=== PATIENT | male | born 1960 ===

== ENCOUNTER 2024-03-11 01:19 | Inpatient (IN) | payer BC ==
[2024-03-11 01:54] LABS: #Basophils 0.06 10x3/uL (0.0-0.2); %Basophils 0.5 % (0.0-1.0); %Eosinophils 2.2 % (0.0-10.0); %Lymphocytes 14.4 % (21.0-51.0); %Monocytes 6.3 % (0.0-10.0); %Neutrophils 76.4 % (42.0-75.0); Hematocrit 42.9 % (42.0-52.0); Hemoglobin 14.5 g/dL (14.0-18.0); Mean Corpuscular HGB CONC 33.8 g/dL (32.0-36.0); Mean Corpuscular Hemoglobin 30.1 pg (27.0-31.0); Mean Platelet Volume 8.5 fL (7.4-10.4); Platelet Count 320 10x3/uL (130-400); RBC Distribution Width 12.8 % (11.5-14.5); Red Blood Cell (RBC) Count 4.82 mill/uL (4.70-6.10)
[2024-03-11] MEDS ORDERED: Ondansetron PF 4 MG/2 ML Vial IVP PRN (02:05)
[2024-03-11 02:08] LABS: INR-International Normal Ratio 1.1; Prothrombin Time 14.4 sec (12.0-14.7)
[2024-03-11 02:18] LABS: D-Dimer Test 6.74 mcg/mL (0.27-0.43)
[2024-03-11 02:20] LABS: PTT 211.3 sec (22.9-36.1)
[2024-03-11 02:44] LABS: ALT (SGPT) 29 U/L (8-55); AST (SGOT) 26 U/L (5-34); Albumin 3.8 g/dL (3.4-4.8); Alkaline Phosphatase 56 U/L (40-110); Anion Gap 16 mmol/L (10-20); BUN (Urea Nitrogen) 28 mg/dL (8.4-25.7); Bilirubin, Total 0.8 mg/dL (0.2-1.2); Calc. Creatinine Clearance 0 mL/min (70-130); Calcium 9.3 mg/dL (7.8-10.44); Carbon Dioxide 18 mmol/L (23-31); Chloride 111 mmol/L (98-107); Estimated GFR 95; Globulin 3.5 g/dL (2.4-3.5); Glucose 122 mg/dL (80-115); Magnesium 2.2 mg/dL (1.6-2.6); Potassium 3.7 mmol/L (3.5-5.1); Protein, Total 7.3 g/dL (5.8-8.1); Sodium 141 mmol/L (136-145)
[2024-03-11 02:49] LABS: Troponin I 0.163 ng/mL (< 0.028)
[2024-03-11] MEDS ORDERED: Amiodarone 150 MG/3 ML VIAL ONE (02:55)
[2024-03-11] MEDS: Amiodarone 450 MG, Admixture Fee 1 EACH in Dextrose 5% in Water 250 ML IVPB SCH (04:18)
[2024-03-11 04:24] VITALS: BMI 33.0
[2024-03-11 05:01] VITALS: BP 132/76
[2024-03-11] MEDS: Lactated Ringer's 1,000 ML IV SCH (05:11)
[2024-03-11 05:59] LABS: #Basophils 0.06 10x3/uL (0.0-0.2); %Basophils 0.6 % (0.0-1.0); %Eosinophils 1.5 % (0.0-10.0); %Lymphocytes 16.5 % (21.0-51.0); %Monocytes 6.6 % (0.0-10.0); %Neutrophils 74.5 % (42.0-75.0); Hematocrit 43.5 % (42.0-52.0); Hemoglobin 14.8 g/dL (14.0-18.0); Mean Corpuscular Hemoglobin 30.2 pg (27.0-31.0); Mean Corpuscular Volume 88.8 fL (78.0-98.0); Platelet Count 315 10x3/uL (130-400); RBC Distribution Width 12.9 % (11.5-14.5)
[2024-03-11 06:19] LABS: Troponin I 0.188 ng/mL (< 0.028)
[2024-03-11 06:20] LABS: Anion Gap 15 mmol/L (10-20); BUN (Urea Nitrogen) 23 mg/dL (8.4-25.7); Calc. Creatinine Clearance 110 mL/min (70-130); Calcium 9.1 mg/dL (7.8-10.44); Carbon Dioxide 19 mmol/L (23-31); Cardiac Risk 4.3 (Less than 4.5); Chloride 110 mmol/L (98-107); Cholesterol 192 mg/dl (< 200 Desired); Estimated GFR 85; Glucose 113 mg/dL (80-115); HDL Cholesterol 45 mg/dL (>60 Neg Risk); LDL Cholesterol, Calculated 127 mg/dL; Potassium 3.6 mmol/L (3.5-5.1); Sodium 140 mmol/L (136-145); Triglycerides 102 mg/dL (Less than 150)
[2024-03-11 08:30] LABS: Prothrombin Time 13.3 sec (12.0-14.7)
[2024-03-11 08:31] LABS: PTT 27.8 sec (22.9-36.1)
[2024-03-11 08:54] LABS: Troponin I 0.208 ng/mL (< 0.028)
[2024-03-11] MEDS: Diltiazem HCl/D5W 125 MG in Premix 1 BAG IVPB SCH (09:05)
[2024-03-11] MEDS: Famotidine/PF 20 mg/2ml Vial SLOW IVP SCH (09:09)
[2024-03-11] MEDS: Enoxaparin 100 MG (1 mL) SYRINGE SC SCH (09:09)
[2024-03-11] MEDS ORDERED: Electrolyte Replacement Protocol FS PRN (09:45)
[2024-03-11] MEDS: Potassium Chloride 20 MEQ TAB PO SCH (10:27)
[2024-03-11] MEDS: Electrolyte Replacement Protocol 1 EACH FS ONE (10:28)
[2024-03-11] MEDS ORDERED: Iopamidol-370 76% 500 ML MDV (1 ML CHARGE) ONE (11:58)
[2024-03-12 05:29] LABS: Anion Gap 11 mmol/L (10-20); BUN (Urea Nitrogen) 14 mg/dL (8.4-25.7); Calc. Creatinine Clearance 115 mL/min (70-130); Calcium 9.2 mg/dL (7.8-10.44); Carbon Dioxide 23 mmol/L (23-31); Chloride 107 mmol/L (98-107); Estimated GFR 89; Glucose 99 mg/dL (80-115); Sodium 137 mmol/L (136-145)
[2024-03-12] MEDS ORDERED: Lidocaine 1% PF 5 ML VIAL ONE (08:30)
[2024-03-12] MEDS ORDERED: PROPOFOL 40 ML ONE (08:30)
[2024-03-12 09:21] LABS: #Basophils 0.08 10x3/uL (0.0-0.2); %Basophils 0.9 % (0.0-1.0); %Eosinophils 3.5 % (0.0-10.0); %Lymphocytes 21.3 % (21.0-51.0); %Monocytes 8.7 % (0.0-10.0); %Neutrophils 65.4 % (42.0-75.0); Hematocrit 44.3 % (42.0-52.0); Hemoglobin 14.6 g/dL (14.0-18.0); Mean Corpuscular Hemoglobin 29.5 pg (27.0-31.0); Mean Corpuscular Volume 89.5 fL (78.0-98.0); Mean Platelet Volume 9.3 fL (7.4-10.4); Platelet Count 318 10x3/uL (130-400); RBC Distribution Width 13.2 % (11.5-14.5); Red Blood Cell (RBC) Count 4.95 mill/uL (4.70-6.10)
[2024-03-12 09:30] LABS: Magnesium 2.3 mg/dL (1.6-2.6)
[2024-03-12] MEDS: dilTIAZem CD 180 MG CAP PO SCH (11:34)
[2024-03-12] MEDS: Aspirin 325 mg Enteric Coated Tablet PO SCH (11:34)
[2024-03-12 16:15] VITALS: TEMP 97.8
[2024-03-13] MEDS ORDERED: dilTIAZem CD 180 MG CAP PO SCH (09:00)
== END 2024-03-12 18:15 | disposition home or self-care (01) | DRG 309 ==
LOC: ERS 01:19 → CCU 02:05 → IMCU/EMU 20:43
PROVIDERS: ADMIT Hospitalist; ATTEND Internal Medicine
PROC: B245ZZ4 Ultrasonography of Left Heart, Transesophageal (ICD-10-PCS; principal; 2024-03-12)
PROC: 5A2204Z Restoration of Cardiac Rhythm, Single (ICD-10-PCS; 2024-03-12)
DX: I48.91 Unspecified atrial fibrillation (principal); E87.20 Acidosis, unspecified; I82.432 Acute embolism and thrombosis of left popliteal vein; I08.1 Rheumatic disorders of both mitral and tricuspid valves; R79.89 Other specified abnormal findings of blood chemistry; Z98.890 Other specified postprocedural states
CPT/HCPCS: 36415; 71275; 80048; 80053; 80061; 83735; 83880; 84443; 84484; 85025; 85379; 85610; 85730; 92960; 93005; 93010; 93306; 93312; 93970; 94760; 96374; 96375; J0282; J1650; J2704; J3490; J7070; J7120; Q9967